=== PATIENT | male | born 1955 | race Two or more races ===

== ENCOUNTER 2019-07-05 14:08 | Emergency (ER) | payer SELFPAY ==
[~2019-07-05] VITALS: Ht 180.3 cm; Wt 92.0 kg
--- NOTE | 2019-07-05 15:36 | RAD ---
CT Head W/O Contrast: History: Pain status post fall Comparison: none Axial images were obtained without contrast. The lawrence and white matter appears normal and symmetrical for the patients age. There is no mass effect, extraaxial fluid collections or hydrocephalus. There is no gross bleed. There is no focal loss of lawrence-white matter distinction to suggest acute ischemia, i.e. stroke. Impression: No acute findings. End impression CT C-Spine without contrast: Clinical History: Pain status post fall Technique: Axial helical images of the cervical spine were obtained without contrast, axial coronal and sagittal reconstruction was performed. Findings: There is no loss of vertebral body stature. There is no prevertebral soft tissue swelling. The vertebral bodies are well aligned. The C1-C2 relationship is normal. The visualized osseous structures appear normal. Evaluation of the central canal is limited without contrast. There is multiple posterior disc bulges resulting in flattening of the thecal sac. There does not appear to be gross flattening of the cervical cord. There is moderate narrowing of multiple neuroforamen. Impression: No acute findings. Clinical correlation suggested. RS Compliance Statement: One or more of the following individualized dose reduction techniques were utilized for this examination: 1. Automated exposure control 2. Adjustment of the mA and/or kV according to patient size 3. Use of iterative reconstruction technique Electronically signed by: Blanco Tucker III, MD (07/05/2019 3:33 PM) [id number]
--- NOTE | 2019-07-05 15:40 | RAD ---
Two-view left forearm HISTORY: Pain and deformity status post fall AP and lateral views of the left forearm There is a markedly comminuted fracture of the distal radius with three-quarter shaft width posterior displacement and with half shaft width lateral displacement and impaction. There is complete avulsion of the ulnar styloid. Remaining visualized osseous structures appear grossly intact. IMPRESSION: Markedly comminuted displaced and impacted fracture of the distal radius. Electronically signed by: Blanco Tucker III, MD (07/05/2019 3:37 PM) [id number]
[2019-07-05] MEDS ORDERED: IV NORMAL SALINE 1,000ML 1,000 ML IV ONE (15:45)
[2019-07-05] MEDS ORDERED: ETOMIDATE 40 MG/20 ML VIAL. IV ONE (15:45)
[2019-07-05 16:00] VITALS: BP 176/110
[2019-07-05] MEDS ORDERED: HYDR-3165 PO ×2 (16:08→16:57)
--- NOTE | 2019-07-05 16:16 | PHYS DOC ---
Past History Past Medical History: No Pertinent History Past Surgical History: No Surgical History Smoking: Non-smoker Alcohol Use: Occasionally Drug Use: None General Adult EDM: Chief Complaint: WRIST PAIN HPI: HPI: 63-year-old male presents with report of accidental fall off of a roof while patient was at work. Patient reports fall on left outstretched hand with subsequent pain and swelling. Patient reports he did strike his head but denies loss of consciousness. Denies neck pain. Denies use of blood thinners. Denies numbness or tingling in left arm. Reports was ambulatory at scene. Review of Systems: Review of Systems: Constitutional: Denies fever or chills Eyes: Denies redness or eye pain HENT: Denies nasal congestion or epistaxis Respiratory: Denies cough or shortness of breath Cardiovascular: Denies chest pain or palpitations GI: Denies abdominal pain, nausea, or vomiting : Denies dysuria or hematuria Musculoskeletal: Denies neck or back pain: Reports left wrist pain and deformity Integument: Denies rash or skin lesions Neurologic: Denies headache, focal weakness or sensory changes Complete systems were reviewed and found to be within normal limits, except as documented in this note. Current Medications: Current Meds: Current Medications Medications (Trade) Dose Ordered Sig/Jeramie Start Time Stop Time Status Last Admin Dose Admin Etomidate (Amidate) 10 mg 1X ONCE 07/05/19 15:45 07/05/19 15:46 DC 07/05/19 15:42 10 MG Fentanyl Citrate (Fentanyl 2ml Vial) 100 mcg 1X ONCE 07/05/19 15:45 07/05/19 15:46 DC 07/05/19 15:41 100 MCG Sodium Chloride 1,000 ml @ 1,000 mls/hr 1X ONCE 07/05/19 15:45 07/05/19 16:44 07/05/19 15:42 1,000 MLS/HR Allergies: Allergies: Allergies Coded Allergies Type Severity Reaction Last Updated Verified No Known Drug Allergies 07/05/19 No Physical Exam: PE: Constitutional: Well developed, well nourished, no acute distress, non-toxic appearance HENT: Normocephalic, atraumatic, oropharynx moist Eyes: PERRL, EOMI, conjunctiva normal, no discharge, no nystagmus Neck: Normal range of motion, no midline tenderness, supple Cardiovascular: Heart rate normal, regular rhythm Lungs & Thorax: Bilateral breath sounds clear to auscultation, no wheezing Abdomen: Soft, no tenderness; pelvis stable and nontender Skin: Warm, dry, no erythema, no rash Back: No tenderness, no CVA tenderness Extremities: Left distal radius and ulna tenderness, deformity present of left wrist, left radial pulses +2, dorsal edema appreciated Neurologic: Alert and oriented X 3, normal motor function, normal sensory function, no focal deficits noted Psychologic: Affect normal, judgment normal EKG: EKG: [] Radiology/Procedures: Radiology/Procedures: PROCEDURE: CT HEAD AND CERVICAL SPINE WO CT Head W/O Contrast: History: Pain status post fall Comparison: none Axial images were obtained without contrast. The lawrence and white matter appears normal and symmetrical for the patients age. There is no mass effect, extraaxial fluid collections or hydrocephalus. There is no gross bleed. There is no focal loss of lawrence-white matter distinction to suggest acute ischemia, i.e. stroke. Impression: No acute findings. End impression CT C-Spine without contrast: Clinical History: Pain status post fall Technique: Axial helical images of the cervical spine were obtained without contrast, axial coronal and sagittal reconstruction was performed. Findings: There is no loss of vertebral body stature. There is no prevertebral soft tissue swelling. The vertebral bodies are well aligned. The C1-C2 relationship is normal. The visualized osseous structures appear normal. Evaluation of the central canal is limited without contrast. There is multiple posterior disc bulges resulting in flattening of the thecal sac. There does not appear to be gross flattening of the cervical cord. There is moderate narrowing of multiple neuroforamen. Impression: No acute findings. Clinical correlation suggested. PQRS Compliance Statement: One or more of the following individualized dose reduction techniques were utilized for this examination: 1. Automated exposure control 2. Adjustment of the mA and/or kV according to patient size 3. Use of iterative reconstruction technique Electronically signed by: Edgardo Tucker III, MD (07/05/2019 3:33 PM) [id number] PROCEDURE: FOREARM LEFT Two-view left forearm HISTORY: Pain and deformity status post fall AP and lateral views of the left forearm There is a markedly comminuted fracture of the distal radius with three-quarter shaft width posterior displacement and with half shaft width lateral displacement and impaction. There is complete avulsion of the ulnar styloid. Remaining visualized osseous structures appear grossly intact. IMPRESSION: Markedly comminuted displaced and impacted fracture of the distal radius. Electronically signed by: Edgardo Tucker III, MD (07/05/2019 3:37 PM) [id number] PROCEDURE: WRIST 3V LEFT 3 view left wrist 3:55 PM AP lateral oblique views HISTORY: Postreduction There is a markedly comminuted fracture of the distal radius with greater than half shaft width posterior displacement and with impaction. There is an avulsion. The ulnar styloid. There is some obscuration of bony detail by overlying cast. IMPRESSION: Markedly comminuted displaced and impacted fracture of the distal radius. There is improved alignment since the 4:02 PM 2 views left forearm. Electronically signed by: Edgardo Tucker III, MD (07/05/2019 4:25 PM) [email or web address] Course & Med Decision Making: Course & Med Decision Making Pertinent Imaging studies reviewed. (See chart for details) Patient presents with report of accidental slip and fall off of a roof while patient was at work. Patient with left wrist/forearm deformity. Limb neurovascularly intact. Patient neurologically intact. No midline cervical spine tenderness. Concern for possible distracting injury. Pain addressed. CT head/cervical spine without acute process. Left forearm x-ray with distal fractu re with significant displacement/impaction. Moderate sedation performed with attempt at reduction. Splint applied after reduction and repeat x-ray obtained. Repeat x-ray with slight improvement of alignment. Limited due to comminuted fragments. Limb continues to be neurovascularly intact. Sling applied for comfort. Discussed case with Dr. Velasco (orthopedics) who is in agreement with plan to followup Sunday in office and will likely require surgical repair in the near future. Patient stable for discharge with outpatient follow-up with PCP/orthopedics. Discussed findings and plan with patient, who acknowledges understanding and digna [place] Disclaimer: Xavier Disclaimer: This electronic medical record was generated, in whole or in part, using a voice recognition dictation system. Departure Departure: Impression: Primary Impression: Distal radius fracture, left Qualified Codes: S52.502A - Unspecified fracture of the lower end of left radius, initial encounter for closed fracture Additional Impression: Fracture of ulnar styloid Qualified Codes: S52.612A - Displaced fracture of left ulna styloid process, initial encounter for closed fracture Disposition: HOME, SELF-CARE Condition: STABLE Referrals: PCP,NO (PCP) EDGARDO VELASCO MD Patient Instructions: Splint Care, [id number], Wrist Fracture, [id number] Additional Instructions: Please follow closely with workman's comp and/or Orthopedic surgery for further evaluation and treatment. May require surgical repair. Scripts Hydrocodone Bit/Acetaminophen (NORCO 5-325 TABLET) 1 Each Tablet 0.5-1 TAB PO Q4-6HRS PRN for PAIN, #10 TAB Prov: LEYLA ZAMORA DO 07/05/19 MODERATE SEDATION ASSESSMENT RISKS/ALTERNATIVES Risks/Alternatives Risks and alternatives of this type of sedation and procedure discussed with: RISK/ALTERNATIVES DISCUSSED: Patient H & P ON CHART H & P H & P on chart and reviewed for co-morbid conditions and appropriate labs. H&P ON CHART: Yes STATUS PREG STATUS ASSESSED: N/A MEDS/ALLERGIES REVIEWED Meds/Allergies Reviewed Medications and Allergies including time and route of recently administered narcotics and sedatives. MEDS/ALLERGIES REVIEWED: Yes ASA RATING ASA RATING: I AIRWAY ASSESSMENT Airway Assessment Airway patency, oral function limitations, presence of caps, crowns, dentures, partials, and ability to extend neck assessed. AIRWAY ASSESSMENT: Yes MALLAMPATI SCORE MALLAMPATI SCORE: III PRE-SEDATION ASSESSMENT PRE-SEDATION PHYSICAL: Yes Splinting Splinting : Location: Left wrist Hand-Made Type: orthoglass (6 inch) Splint: ulnar (long arm) Pre-Proc Neuro Vasc Exam: normal Post-Proc Neuro Vasc Exam: normal, unchanged from pre-exam Progress Preferred to use sugar tong splint, however orthoglass supplies limited and the refore ulnar gutter applied with 6 inch as 4inch currently unavailable. Additional Procedures Progress Sedation/Fracture Reduction: Procedural Sedation/Analgesia Plan of Sedation IV Sedation/Analgesia I have completed a re-assessment immediately before sedation/analgesia administration, and the patient remains a candidate for the planned procedure and choice of sedation/analgesia. Procedure Performed by ED physician Sedation Time Enter 15 minutes Consent/Setup Verified correct patient, Informed consent provided, No pt Hx adverse reaction, Consent from patient, Time-out performed, Hand hygiene observed, Head of bed at 30-60 deg Indication Fracture reduction Preparation compliance monitor applied, Pulse oximeter applied, Constant attendance, IV access established, Eval last meal time, Supplemental oxygen, Procedure explained, Suction available, End tidal CO2 monitor applied VS Prior to Procedure O2 saturation normal, Blood pressure normal, Heart Rate normal, Respiratory rate normal Mallampati: Class & Anatomy Visible 3 ASA Classification 1 Airway Exam Normal facial anatomy, Normal neck anatomy CVS/Resp Exam Normal breath sounds, Normal heart sounds Neuro Exam Alert, Responsive Sedation Sedation: Etomidate (15mg), Analgesia: Fentanyl (100mcg) Response During Procedure Handled secretions adequate, Maintained airway well, Oxygenation stable, Sedation appropriate Complications During/After None Reversal None required Mental Status After Procedure Alert, Oriented X3, At patient's baseline Post-Procedure Alert prior to discharge, Ambulatory with assist, Pt return pre-proc baseline Attestation I performed procedure, I performed sedation, I pushed Etomidate Reduction Fracture Consent/Setup Verified correct patient, Informed consent provided, Consent from patient, Time-out performed, Oxygen administered, Pulse oximeter applied, compliance monitor applied, Hand hygiene observed Neurovascular Pre-Procedure Neurologic intact, Vascular intact Procedural Sedation/Analgesia Sedation: Etomidate (10mg), Analgesia: Fentanyl (100mcg) Fracture Reduction by ED physician Reduction Method/Location Manipulation Type of Immobilization 6 inch Ortho-glass, Ulnar gutter long arm Immobilization Applied by ED physician Post-Procedure/Complications Improved alignment, Neurovascular intact, X-Ray partial reduction, No complications, Tolerated procedure well, Patient stable LEYLA ZAMORA DO Jul 05, 2019 16:16
--- NOTE | 2019-07-05 16:28 | RAD ---
3 view left wrist 3:55 PM AP lateral oblique views HISTORY: Postreduction There is a markedly comminuted fracture of the distal radius with greater than half shaft width posterior displacement and with impaction. There is an avulsion. The ulnar styloid. There is some obscuration of bony detail by overlying cast. IMPRESSION: Markedly comminuted displaced and impacted fracture of the distal radius. There is improved alignment since the 4:02 PM 2 views left forearm. Electronically signed by: Blanco Tucker III, MD (07/05/2019 4:25 PM) [id number]
== END 2019-07-05 17:15 | disposition home or self-care (01) ==
LOC: ER 14:08
DX: S52.502A Unspecified fracture of the lower end of left radius, initial encounter for closed fracture (principal); S52.612A Displaced fracture of left ulna styloid process, initial encounter for closed fracture; W20.8XXA Other cause of strike by thrown, projected or falling object, initial encounter; Y93.89 Activity, other specified; Y92.89 Other specified places as the place of occurrence of the external cause; Y99.8 Other external cause status
CPT/HCPCS: 25605; 70450; 72125; 73090; 73110; 99285; J3010; J7030